=== PATIENT | female | born 1990 | race Hispanic/Latino ===

== ENCOUNTER 2017-11-15 12:54 | Emergency (ER) | payer OTHER ==
[2017-11-15 12:58] VITALS: BP 123/80; PULSE 90; RESP 16; TEMP 98.8; O2SAT 100
--- NOTE | 2017-11-15 13:47 | ED PDOC ---
HPI: Psych/Substance Abuse Time Seen by Provider: 11/15/17 12:59 Chief Complaint (Nursing): Psychiatric Evaluation Chief Complaint (Provider): Psychiatric Evaluation History Per: Patient History/Exam Limitations: no limitations Onset/Duration Of Symptoms: Mins (prior to arrival) Additional Complaint(s): 27 year old female who presents to the emergency department accompanied by police for a psychiatric evaluation after mother called PD concerned that patient might harm herself prior to arrival. Patient denied any suicidal or homicidal ideation and stated that she was upset after arguing with her boyfriend and proceeded to call mother, in which, her sister attempted to call patient at the same time. Both calls were dropped in the process and patient was unable to reach out to mother or sister which prompted her mother to call 911. Patient offered no other complaints but reported she was seen in [facility] on 11/13/17 after ingesting 20 tablets of Lamictal. She was discharged after a 12 hour ED stay with activated charcoal. PMD: none provided Past Medical History Reviewed: Historical Data, Nursing Documentation, Vital Signs Vital Signs: Last Vital Signs Temp 98.8 F 11/15/17 12:55 Pulse 90 11/15/17 12:55 Resp 16 11/15/17 12:55 BP 123/80 11/15/17 12:55 Pulse Ox 100 11/15/17 12:55 - Medical History PMH: No Chronic Diseases - Surgical History Surgical History: No Surg Hx - Family History Family History: States: Unknown Family Hx - Social History Current smoker - smoking cessation education provided: No Alcohol: None Drugs: Denies - Allergies Allergies/Adverse Reactions: Allergies Allergy/AdvReac Type Severity Reaction Status Date / Time No Known Allergies Allergy Verified 11/15/17 12:55 Review of Systems ROS Statement: Except As Marked, All Systems Reviewed And Found Negative Psych: Negative for: Suicidal ideation (or homicidal ideation) Physical Exam - Reviewed Nursing Documentation Reviewed: Yes Vital Signs Reviewed: Yes - Physical Exam Appears: Positive for: Well, Non-toxic, No Acute Distress Cardiovascular/Chest: Positive for: Regular Rate, Rhythm, Chest Non Tender Respiratory: Positive for: Normal Breath Sounds. Negative for: Decreased Breath Sounds, Wheezing, Respiratory Distress Gastrointestinal/Abdominal: Positive for: Normal Exam, Soft. Negative for: Tenderness Extremity: Positive for: Normal ROM (upper/lower). Negative for: Deformity ( upper/lower) Neurologic/Psych: Positive for: Alert (x3), Oriented, Mood/Affect (calm and cooperative) - ECG O2 Sat by Pulse Oximetry: 100 (RA) Pulse Ox Interpretation: Normal Medical Decision Making Medical Decision Making: Initial Impression: Crisis evaluation Initial Plan: * Drug screen, urine * Crisis evaluation * Urine * 1:1 OBS Pt. evaluated by Lilly, finish repair worker, who spoke with Dr. Tadeo and cleared pt. for discharge. Scribe Attestation: Documented by Marianna Monsalve, acting as a scribe for Alan Gamboa PA-C. Provider Scribe Attestation: All medical record entries made by the Scribe were at my direction and personally dictated by me. I have reviewed the chart and agree that the record accurately reflects my personal performance of the history, physical exam, medical decision making, and the department course for this patient. I have also personally directed, reviewed, and agree with the discharge instructions and disposition. Disposition - Clinical Impression Clinical Impression: Borderline personality disorder - Patient ED Disposition Is Patient to be Admitted: No - Disposition Disposition: Routine/Home Disposition Time: 14:41 Condition: STABLE Instructions: Borderline Personality Disorder (GEN) Forms: [employer] (Monegasque) Print Language: CROATIAN
[2017-11-15 15:51] LABS: BARBITURATES, UR NEGATIVE (NEGATIVE); BENZODIAZEPINES, UR NEGATIVE (NEGATIVE); OPIATES, UR NEGATIVE (NEGATIVE); PHENCYCLIDINE, UR NEGATIVE (NEGATIVE)
== END 2017-11-15 15:15 | disposition home or self-care (01) ==
LOC: H.ER 12:54
DX: F60.3 Borderline personality disorder (principal)